=== PATIENT | male | born 1990 | race African-American/Black ===

== ENCOUNTER 2017-05-11 10:11 | Observation (INO) | payer BC ==
[~2017-05-11] VITALS: Ht 203.2 cm; Wt 89.4 kg
[2017-05-11] MEDS ORDERED: RIVA10TA PO (10:15)
[2017-05-11] MEDS ORDERED: SODIUM CHLORIDE 0.9% 1,000 ML IV ONE ×2 (10:27→14:00)
[2017-05-11] MEDS ORDERED: ONDANSETRON HCL 4MG/2ML VIAL IV STA (10:27)
[2017-05-11] MEDS ORDERED: ADENOSINE 3 MG/ML 2ML VIAL IV ONE ×2 (10:30→10:40)
[2017-05-11] MEDS ORDERED: PROPOFOL 200MG/20ML VIAL IV ONE (11:00)
[2017-05-11 11:18] LABS: CHLORIDE 101 mEq/L (98-107); INR 1.4; PARTIAL THROMBOPLASTIN TIME 31.6 sec (23.4-31.0); PROTHROMBIN TIME 14.3 sec (9.4-11.6)
[2017-05-11 11:21] LABS: BASOPHILS % 0.8 % (0.0-2.0); EOSINOPHILS % 0.1 % (0.0-5.0); HEMATOCRIT. 37.8 % (42.0-52.0); HEMOGLOBIN. 13.2 g/dL (14.0-18.0); LYMPHOCYTES % 23.7 % (20.0-50.0); MEAN CORPUSCULAR HEMOGLOBIN 31.2 pg (28.0-32.0); MEAN CORPUSCULAR VOLUME 89.4 fL (80.0-94.0); MEAN PLATELET VOLUME 9.9 fl (7.4-10.4); MONOCYTES % 8.2 % (2.0-8.0); NEUTROPHILS % 67.2 % (40.0-76.0); PLATELET 188 x1000/uL (130-400); RED BLOOD CELL COUNT 4.23 mill/uL (4.7-6.1); RED CELL DISTRIBUTION WIDTH 12.4 % (11.6-14.6)
[2017-05-11 11:24] LABS: CARBON DIOXIDE 28 mEq/L (21-32)
[2017-05-11 16:00] VITALS: BP 105/52
[2017-05-11 16:26] VITALS: BP 105/52
[2017-05-11] MEDS ORDERED: ACETAMINOPHEN 325MG TABLET PO PRN (17:45)
[2017-05-11] MEDS ORDERED: RIVAROXABAN 20 MG TABLET PO SCH (18:30)
[2017-05-11 20:00] VITALS: BP 126/57
[2017-05-11 23:26] LABS: CREATINE KINASE MB FRACTION 12.8 ng/mL (0.5-3.6); TROPONIN I 0.28 ng/mL (0.00-0.04)
[2017-05-12] VITALS: BP 116/71
[2017-05-12] MEDS: ASPIRIN 81MG EC TABLET PO SCH ×2 (00:30→08:28)
[2017-05-12 04:00] VITALS: BP 127/70
[2017-05-12] MEDS: PANTOPRAZOLE 40MG DR TABLET PO SCH ×2 (07:20→07:23)
[2017-05-12 07:36] LABS: BASOPHILS % 0.7 % (0.0-2.0); EOSINOPHILS % 3.2 % (0.0-5.0); HEMATOCRIT. 35.6 % (42.0-52.0); HEMOGLOBIN. 12.3 g/dL (14.0-18.0); LYMPHOCYTES % 23.9 % (20.0-50.0); MEAN CORPUSCULAR HEMOGLOBIN 30.9 pg (28.0-32.0); MEAN CORPUSCULAR VOLUME 89.2 fL (80.0-94.0); MEAN PLATELET VOLUME 9.4 fl (7.4-10.4); NEUTROPHILS % 61.2 % (40.0-76.0); PLATELET 167 x1000/uL (130-400); RED BLOOD CELL COUNT 3.99 mill/uL (4.7-6.1); RED CELL DISTRIBUTION WIDTH 12.1 % (11.6-14.6)
[2017-05-12 08:00] VITALS: BP 121/63
[2017-05-12 08:04] LABS: CHLORIDE 103 mEq/L (98-107)
[2017-05-12 08:17] LABS: CARBON DIOXIDE 28 mEq/L (21-32); CREATINE KINASE 370 IU/L (39-308); CREATINE KINASE MB FRACTION 12.7 ng/mL (0.5-3.6); HDL CHOLESTEROL 29 mg/dL (40-59); LDL CHOLESTEROL 61 mg/dL (5-100); T4 FREE 1.39 ng/dL (0.76-1.46); TROPONIN I 0.25 ng/mL (0.00-0.04)
[2017-05-12 13:00] VITALS: BP 130/84
[2017-05-12 21:00] VITALS: BP 160/71
== END 2017-05-12 15:00 | disposition left against medical advice (07) ==
LOC: EDBD 10:11 → ER 10:30 → INTOOBSV 12:59 → 6WST 12:59 → EDBEDREQ 13:05 → ENRESERV 15:19
PROVIDERS: ADMIT Internal Medicine; ATTEND Internal Medicine
DX: I47.1 Supraventricular tachycardia (principal); K52.9 Noninfective gastroenteritis and colitis, unspecified; N18.9 Chronic kidney disease, unspecified; I48.0 Paroxysmal atrial fibrillation
CPT/HCPCS: 36415; 71010; 80053; 80061; 82550; 82553; 83605; 83690; 84439; 84443; 84484; 85025; 85610; 85730; 93005; 96361; 96374; 96375; 99285; G0378; J0153; J2405; J7030; J2704